=== PATIENT | female | born 2000 | race African-American/Black ===

== ENCOUNTER 2020-12-23 17:54 | Inpatient (IN) | payer OTHER ==
[2020-12-23] MEDS ORDERED: DEXTROSE 5%-LACTATED RINGERS 1,000 ML IV SCH (18:45)
[2020-12-23 19:27] VITALS: BMI 25.2
[2020-12-23] MEDS: OXYTOCIN 30 UNITS in 0.9% NS 30 UNIT/500 ML INFUS.BAG IVPB SCH (22:00)
[2020-12-23] MEDS ORDERED: OXYTOCIN 30 UNITS in 0.9% NS 30 UNIT/500 ML INFUS.BAG IVPB ONE (22:01)
[2020-12-24 08:58] LABS: BASO % 0.3 % (0-2.0); EOS % 0.3 % (0-4.5); HEMATOCRIT 33.3 % (32.4-45.2); HEMOGLOBIN 11.2 GM/dL (10.7-15.3); LYMPH % 23.7 % (8-40); MCH 30.3 pg (25.7-33.7); MCHC 33.5 g/dl (32.0-36.0); MEAN CELL VOLUME 90.3 fl (80-96); MEAN PLT VOLUME 7.4 fl (7.5-11.1); MONO % 9.3 % (3.8-10.2); NEUT % 66.4 % (42.8-82.8); PLATELET COUNT 268 10^3/uL (134-434); RBC 3.69 M/mm3 (3.60-5.2); RDW 17.6 % (11.6-15.6)
[2020-12-24 09:25] LABS: ALBUMIN 2.6 g/dl (3.4-5.0); BLOOD UREA NITROGEN 8.8 mg/dL (7-18); CALCIUM 9.1 mg/dL (8.5-10.1)
[2020-12-24 09:28] LABS: CREATININE 0.7 mg/dL (0.55-1.3)
[2020-12-24 09:30] LABS: BILIRUBIN,TOTAL 0.9 mg/dL (0.2-1); TOT PROT 6.5 g/dl (6.4-8.2)
[2020-12-24] MEDS ORDERED: PROMETHAZINE HCL 25 MG/1 ML VIAL ONE (14:14)
[2020-12-24] MEDS ORDERED: BUTORPHANOL TARTRATE 2 MG/ML VIAL ONE (14:14)
[2020-12-24] MEDS ORDERED: BUTORPHANOL TARTRATE 2 MG/ML VIAL IVPB ONE (14:15)
[2020-12-24] MEDS ORDERED: PROMETHAZINE HCL 25 MG/1 ML VIAL IVPB ONE (14:45)
[2020-12-24] MEDS ORDERED: HEPARIN NA (PORCINE) 5,000 UNITS/ML 1ML VIAL SQ ONE (17:45)
[2020-12-24] MEDS ORDERED: OXYTOCIN 30 UNITS in 0.9% NS 30 UNIT/500 ML INFUS.BAG IVPB ONE (23:43)
[2020-12-25] MEDS ORDERED: FENTANYL/BUPIVACAINE/NS/PF - PCEA - 50 ML DISP.SYRIN EP ONE ×2 (01:59→08:10)
[2020-12-25] MEDS ORDERED: PCA PUMP NR ONE ×2 (02:00→08:10)
[2020-12-25] MEDS ORDERED: NALOXONE HCL 0.4 MG/ML VIAL IVPUSH PRN (02:21)
[2020-12-25] MEDS ORDERED: FENTANYL/BUPIVACAINE/NS/PF - PCEA - 50 ML DISP.SYRIN EP SCH (02:30)
[2020-12-25] MEDS ORDERED: SODIUM CHLORIDE 1,000 ML IV ONE (02:45)
[2020-12-25] MEDS ORDERED: SODIUM CHLORIDE 1,000 ML IV SCH (06:00)
[2020-12-25] MEDS: OXYTOCIN 30 UNITS in 0.9% NS 30 UNIT/500 ML INFUS.BAG IVPB SCH (11:00)
[2020-12-25] MEDS ORDERED: OXYTOCIN 20 UNITS in 0.9% NS 20 UNIT/1,000 ML INFUS.BAG IV ONE ×2 (13:21→15:32)
[2020-12-25] MEDS: OXYTOCIN 20 UNITS in 0.9% NS 20 UNIT/1,000 ML INFUS.BAG IV SCH ×2 (13:36→15:30)
[2020-12-25] MEDS ORDERED: BUPIVACAINE HCL/PF 0.5% (5MG/ML) 10 ML VIAL ONE (13:53)
[2020-12-25] MEDS ORDERED: BUPIVACAINE HCL/PF 0.25% (2.5MG/ML) 10 ML VIAL ONE (13:53)
[2020-12-25 14:05] LABS: CORD BASE EXCESS -6.7 mmol/L (0-2); CORD HCO3 17.8 mmHg (20-29); CORD PCO2 32.9 mmHg (30-78); CORD pH 7.35 (7.14-7.44)
[2020-12-25] MEDS ORDERED: IBUPROFEN 600 MG TABLET (FP) PO PRN (14:39)
[2020-12-25] MEDS ORDERED: WITCH HAZEL 50% (TUCKS) 40 PAD/JAR PAD TP PRN (14:39)
[2020-12-25] MEDS ORDERED: BENZOCAINE 28 GM HEMORRHOIDAL OINTMENT TP PRN (14:39)
[2020-12-25] MEDS ORDERED: ACETAMINOPHEN 325 MG TABLET (FP) PO PRN (14:39)
[2020-12-25] MEDS ORDERED: BENZOCAINE 20% 57 GM BOTTLE TP PRN (14:39)
[2020-12-25] MEDS: FERROUS SO4 325 MG TABLET (FP) PO SCH (17:41)
[2020-12-26 07:06] LABS: BASO % 0.2 % (0-2.0); EOS % 0.2 % (0-4.5); LYMPH % 17.5 % (8-40); MCH 30.5 pg (25.7-33.7); MCHC 33.4 g/dl (32.0-36.0); MEAN CELL VOLUME 91.3 fl (80-96); MEAN PLT VOLUME 8.2 fl (7.5-11.1); MONO % 8.4 % (3.8-10.2); NEUT % 73.7 % (42.8-82.8); PLATELET COUNT 228 10^3/uL (134-434); RBC 2.95 M/mm3 (3.60-5.2); RDW 17.7 % (11.6-15.6); WHITE BLOOD COUNT 17.3 K/mm3 (4.0-10.0)
[2020-12-26] MEDS: FERROUS SO4 325 MG TABLET (FP) PO SCH ×3 (09:28→17:09)
[2020-12-26] MEDS ORDERED: SENNOSIDES/DOCUSATE COMBO (SENNA PLUS) TABLET (UD) PO PRN (22:00)
[2020-12-27] MEDS: FERROUS SO4 325 MG TABLET (FP) PO SCH ×2 (09:07→12:15)
[2020-12-27 11:44] VITALS: BP 129/84; PULSE 86; TEMP 98.2
== END 2020-12-27 12:35 | disposition home or self-care (01) | DRG 560 ==
LOC: JLDR 17:54 → J3W 12-25 14:45
PROVIDERS: ADMIT Obstetrics & Gynecology Maternal & Fetal Medicine; ATTEND Obstetrics & Gynecology Maternal & Fetal Medicine
PROC: 0HQ9XZZ Repair Perineum Skin, External Approach (ICD-10-PCS; principal; 2020-12-25)
PROC: 10E0XZZ Delivery of Products of Conception, External Approach (ICD-10-PCS; 2020-12-25)
DX: O34.219 Maternal care for unspecified type scar from previous cesarean delivery (principal); O09.93 Supervision of high risk pregnancy, unspecified, third trimester; O69.81X0 Labor and delivery complicated by cord around neck, without compression, not applicable or unspecified; O70.0 First degree perineal laceration during delivery; Z3A.38 38 weeks gestation of pregnancy; Z37.0 Single live birth
CPT/HCPCS: 36415; 36600; 59409; 80053; 82803; 85025; 86762; 86850; 86900; 86901; 87340